=== PATIENT | female | born 1975 | race Hispanic/Latino ===

== ENCOUNTER 2019-06-05 15:43 | Emergency (ER) | payer OTHER ==
[~2019-06-05] VITALS: Ht 167.6 cm; Wt 99.8 kg
[2019-06-05] MEDS ORDERED: POTASSIUM CHLORIDE 20 MEQ TAB CR PO STA (18:36)
[2019-06-05] MEDS ORDERED: CLONIDINE HCL 0.1 MG TAB PO ONE (18:45)
[2019-06-05] MEDS ORDERED: POTASSIUM CHLORIDE 20 MEQ TAB CR PO ONE (18:56)
[2019-06-05] MEDS ORDERED: CLONIDINE HCL 0.1 MG TAB ONE (18:56)
--- NOTE | 2019-06-05 18:59 | NUR ---
REPORT TO JOHNY FRANCO
== END 2019-06-05 20:09 | disposition home or self-care (01) ==
LOC: FSED 15:43
DX: R07.89 Other chest pain (principal); I10 Essential (primary) hypertension
CPT/HCPCS: 80053; 82553; 84484; 85025; 93005; 99283